=== PATIENT | male | born 1980 | race Caucasian/White ===

== ENCOUNTER → 2020-09-05 14:42 | Outpatient (CLI) | payer BC, SELFPAY ==
[2020-09-05 16:02] LABS: Chloride 105 mmol/L (98-107); Sodium 140 mmol/L (136-145)
[2020-09-05 16:03] LABS: Potassium 4.8 mmoL/L (3.5-5.1)
[2020-09-05 16:05] LABS: Alanine Aminotransferase 38 U/L (12-78); Albumin/Globulin Ratio 1.6 (1.1-1.8); Alkaline Phosphatase 66 U/L (38-126); Anion Gap 12.8 mEq/L (5-15); Aspartate Amino Transferase 30 U/L (17-59); Bilirubin,Total 0.5 mg/dl (0.2-1.3); Blood Urea Nitrogen 23 mg/dl (9-20); Carbon Dioxide 27 mmol/L (22.0-30.0); Cholesterol 218 mg/dl (140-200); Estimated Glomerular Filt Rate 74 ml/min (>60); GFR (African American) 89 ML/MIN (>60); Globulin 3.1 g/dL (1.3-3.2); Total Protein,Serum 8.1 g/dl (6.3-8.2); Triglycerides 166 mg/dl (30-150); VLDL Cholesterol 33 mg/dL (0-40)
[2020-09-05 16:06] LABS: Chol/HDL Ratio 4.8 (1-3.5); Glucose 99 mg/dl (74-100); HDL Cholesterol 45 mg/dl (40-60)
[2020-09-05 16:07] LABS: Basophils # 0.1 K/mm3 (0-0.2); Basophils % 1.1 % (0.1-2.0); Eosinophils # 0.1 K/mm3 (0.0-0.4); Eosinophils % 1.7 % (0.1-12.0); Hematocrit 48.5 % (42.0-52.0); Hemoglobin 16.8 g/dL (14.1-18.0); Lymphocytes # 1.3 K/mm3 (0.7-4.5); Lymphocytes % 26.6 % (10-50); Mean Corpuscular HGB Conc 34.7 g/dL (31.8-35.4); Mean Corpuscular Hemoglobin 29.5 pg (27.0-31.2); Mean Corpuscular Volume 84.8 fl (80-94); Mean Platelet Volume 9.1 fl (7.4-10.4); Monocytes # 0.4 K/mm3 (0.1-1.0); Monocytes % 8.1 % (1.7-9.3); Neutrophils # 3.1 K/mm3 (1.8-7.8); Neutrophils % 62.5 % (37.0-80.0); Platelet Count 301 K/mm3 (142-424); Red Blood Count 5.71 M/mm3 (4.60-6.20); Red Cell Distribution Width 13.4 % (11.5-17.5)
[2020-09-05 16:17] LABS: Direct LDL Cholesterol 132.86 mg/dL (100-129)
[2020-09-05 16:22] LABS: T4 (Thyroxine) 6.7 ug/dl (5.53-11.0)
[2020-09-05 16:36] LABS: Thyroid Stimulating Hormone 0.76 uIU/mL (0.465-4.68)
[2020-09-05 21:30] LABS: Hemoglobin A1C 4.7 % (4.0-6.0)
== END ==
PROVIDERS: Visit Provider Family Medicine
DX: F41.9 Anxiety disorder, unspecified (principal); R63.5 Abnormal weight gain; T50.905A Adverse effect of unspecified drugs, medicaments and biological substances, initial encounter
CPT/HCPCS: 80053; 80061; 83036; 84436; 84443; 85025